=== PATIENT | male | born 1980 | race Caucasian/White ===

== ENCOUNTER → 2019-05-14 | Outpatient (CLI) | payer OTHER ==
[~2019-05-14] VITALS: Ht 170.2 cm; Wt 89.8 kg
[~2019-05-14] MED LIST: MOTRIN 600600 MG/TAB PO; ROXICODONE 55 MG/TAB PO
[2019-05-14 14:15] VITALS: BP 174/106; PULSE 82
[2019-05-14 15:05] VITALS: BP 166/109; PULSE 86
[2019-05-14 15:18] VITALS: BP 148/96
== END ==
LOC: COL.RAD 13:00
DX: M51.17 Intervertebral disc disorders with radiculopathy, lumbosacral region (principal)
CPT/HCPCS: J3301